=== PATIENT | male | born 1955 | race Caucasian/White ===

== ENCOUNTER 2021-06-25 17:45 | Inpatient (IN) | payer MEDICAID ==
[~2021-06-25] VITALS: Ht 182.9 cm; Wt 107.2 kg
[2021-06-25 18:35] LABS: BASO # 0.1 K/mm3 (0.0-0.2); BASO % 0.9 % (0.0-2.0); EOS # 0.2 K/mm3 (0.0-0.7); EOS % 2.2 % (0-4.0); GRAN # 6.6 K/mm3 (1.4-6.5); GRAN % 77.3 % (42.2-75.2); HEMATOCRIT 43.8 % (42.0-52.0); HEMOGLOBIN 14.6 g/dl (13.5-18.0); LYMPH # 0.9 K/mm3 (1.2-3.4); LYMPH % 10.6 % (20.0-51.0); MEAN CELL VOLUME 93 fl (80.0-100.0); MEAN CORPUSCULAR HEMOGLOBIN 31 pg (27.0-31.0); MEAN CORPUSCULAR HGB CONC 33 g/dl (33.0-37.0); MONO # 0.7 K/mm3 (0.1-0.6); MONO % 8.6 % (1.7-9.3); PLATELET COUNT 255 K/mm3 (130-400); REDCELL DISTRIBUTION WIDTH-CV 13.2 % (11.5-14.5)
[2021-06-25 18:39] LABS: INR 1.3 (0.8-3.0); PROTHROMBIN TIME 14.3 SECONDS (9.7-12.8)
[2021-06-25 18:41] LABS: BILIRUBIN,TOTAL 2.1 mg/dL (0.2-1.2); CALCIUM 9.2 mg/dL (8.4-10.2); CREATININE, serum 1.27 mg/dL (0.72-1.25); POTASSIUM 3.8 mmol/L (3.5-4.5); TOTAL PROTEIN 7.7 gm/dL (6.2-8.1)
[2021-06-25 18:42] LABS: PARTIAL THROMBOPLASTIN TIME 33.3 SECONDS (26.0-37.0)
[2021-06-25 18:47] LABS: TROPONIN-I 0.04 ng/mL (0.00-0.033)
[2021-06-25 22:54] LABS: C-REACTIVE PROTEIN 1.21 mg/dL (0.00-0.50); MAGNESIUM 2.1 mg/dL (1.6-2.6); PHOSPHOROUS 3.8 mg/dL (2.3-4.7)
[2021-06-25 23:15] LABS: THYROID STIMULATING HORMONE 1.25 uIU/mL (0.350-4.940)
[2021-06-26] VITALS (651 sets, daily range): BP systolic 107–190; BP diastolic 11–112; PULSE 59–85; TEMP 98–98.8; O2SAT 84–99
[2021-06-26 01:21] LABS: CALCIUM 9.2 mg/dL (8.4-10.2); CREATININE, serum 1.12 mg/dL (0.72-1.25); POTASSIUM 3.6 mmol/L (3.5-4.5)
[2021-06-26 05:16] LABS: BASO # 0.1 K/mm3 (0.0-0.2); BASO % 0.9 % (0.0-2.0); EOS # 0.3 K/mm3 (0.0-0.7); GRAN # 6.7 K/mm3 (1.4-6.5); GRAN % 77.7 % (42.2-75.2); HEMATOCRIT 41.4 % (42.0-52.0); HEMOGLOBIN 13.5 g/dl (13.5-18.0); LYMPH # 0.8 K/mm3 (1.2-3.4); LYMPH % 9.3 % (20.0-51.0); MEAN CELL VOLUME 95 fl (80.0-100.0); MEAN CORPUSCULAR HEMOGLOBIN 31 pg (27.0-31.0); MEAN CORPUSCULAR HGB CONC 33 g/dl (33.0-37.0); MEAN PLATELET VOLUME 10.6 fl (7.4-10.4); MONO # 0.8 K/mm3 (0.1-0.6); MONO % 8.9 % (1.7-9.3); PLATELET COUNT 242 K/mm3 (130-400); RED BLOOD COUNT 4.36 M/mm3 (4.20-5.60); REDCELL DISTRIBUTION WIDTH-CV 13.2 % (11.5-14.5)
[2021-06-26 05:32] LABS: CALCIUM 8.9 mg/dL (8.4-10.2); CHOLESTEROL RISK RATIO 7.6; CREATININE, serum 1.16 mg/dL (0.72-1.25); POTASSIUM 3.9 mmol/L (3.5-4.5)
--- NOTE | 2021-06-26 13:49 | NUR ---
SW met with patient to complete intake. Patient provides that he lives with is brother Daren, brother Jorge [phone] present at intake. Patient states that he does not utilize DME and is independent with ADL's. Patient provides that he does not have a PCP established, and has been utilizing [facility] for his pharmacy needs. Patient provides that is brother Jorge and sister Ghada has been appointed as his DPOA-HC. Brother provides that he can bring a copy of document. Patient provides that his plan is to return to his home up [place] and has no concerns with doing so. SW will continue to follow. DC Plan: Home
[2021-06-27] VITALS (131 sets, daily range): BP systolic 143–161; BP diastolic 82–98; PULSE 56–65; TEMP 97.8–98.6; O2SAT 74–98
--- NOTE | 2021-06-27 07:11 | NUR ---
PATIENT RESTING IN BED. HEPARIN DRIP INFUSING AT 15.5ML/HR
[2021-06-27 08:08] LABS: BASO # 0.1 K/mm3 (0.0-0.2); EOS # 0.3 K/mm3 (0.0-0.7); EOS % 3.6 % (0-4.0); GRAN # 5.8 K/mm3 (1.4-6.5); GRAN % 72.1 % (42.2-75.2); LYMPH # 0.9 K/mm3 (1.2-3.4); MEAN CELL VOLUME 93 fl (80.0-100.0); MEAN CORPUSCULAR HEMOGLOBIN 31 pg (27.0-31.0); MEAN CORPUSCULAR HGB CONC 33 g/dl (33.0-37.0); MEAN PLATELET VOLUME 10.8 fl (7.4-10.4); MONO % 12.1 % (1.7-9.3); PLATELET COUNT 259 K/mm3 (130-400); RED BLOOD COUNT 5.08 M/mm3 (4.20-5.60); REDCELL DISTRIBUTION WIDTH-CV 13.3 % (11.5-14.5)
[2021-06-27 08:09] LABS: HEMOGLOBIN 15.7 g/dl (13.5-18.0)
[2021-06-27 08:19] LABS: CALCIUM 9.5 mg/dL (8.4-10.2); CREATININE, serum 1.32 mg/dL (0.72-1.25); POTASSIUM 3.5 mmol/L (3.5-4.5)
--- NOTE | 2021-06-27 09:23 | NUR ---
PATIENT UP AT THE SIDE OF THE BED. HE DENIES OTHER NEEDS. VOIDING WELL HEPARIN DRIP INFUSING. ASSESSMENT COMPLETED. AND NO PAIN REPORTED
--- NOTE | 2021-06-27 13:18 | NUR ---
mining support worker met with the patient to discuss discharge plan. Patient states that he lives with his brother Daren, but that Daren does not have a phone and neither of them have a car. Patient reports that he ised to see Fabi Montano at the [address] [place] [address] but since that has closed he has not seen a physician. Reports he is fully independent with his activities of daily living and does not utilize any DME. Patient reports that he does not have a DPOA-HC established but verbalizes his agent would be his other brother Jorge ([phone]). Patient is not and has no children. Patient verbalizes that he would like a DPOA-HC form to take home and review with Jorge. Form provided and education given. Patient is planning on returning home once ready. PCP will need to be established. Dicharge plan: Home- Needs PCP
--- NOTE | 2021-06-27 19:35 | NUR ---
PT LAYING IN BED, CALL LIGHT IN REACH. NO COMPLAINTS AT THIS TIME.
--- NOTE | 2021-06-27 23:53 | NUR ---
PT SITTING UP IN BED WITH HEP GTT RUNNING SMOOTHLY AT 16 GTT. PT WATCHING FOOTBALL GAME. DENIES PAIN, SOB OR ANY COMPLAINTS. PT STATED "SUPPOSED TO HAVE CT SCAN TOMORROW PER DR. GIBSON AND POSSIBLE D/C TOMORROW." PT HAS CALL LIGHT IN REACH, NO NEEDS AT THIS TIME, ADVISED TO CALL FOR ANY INCREASE OF PAIN OR SOB.
[2021-06-28 01:39] VITALS: BP 145/78; PULSE 68; TEMP 98
[2021-06-28 04:42] VITALS: BP 153/74; PULSE 67; TEMP 97.9
--- NOTE | 2021-06-28 06:40 | NUR ---
PT STAYED UP TO FINISH WATCHING THE FOOTBALL GAMES. PT WAS PLEASANT ALL NIGHT WITH NO COMPLAINTS. PT INVOLVED WITH CARE AND ASKING QUESTIONS. PT SLEPT A DECENT AMOUNT. CALL LIGHT IN REACH. NO NEEDS AT THIS TIME.
[2021-06-28 06:53] LABS: BASO # 0.1 K/mm3 (0.0-0.2); EOS # 0.4 K/mm3 (0.0-0.7); EOS % 4.9 % (0-4.0); GRAN # 5.8 K/mm3 (1.4-6.5); GRAN % 71.4 % (42.2-75.2); HEMATOCRIT 43.8 % (42.0-52.0); HEMOGLOBIN 14.7 g/dl (13.5-18.0); LYMPH # 0.9 K/mm3 (1.2-3.4); LYMPH % 10.9 % (20.0-51.0); MEAN CELL VOLUME 94 fl (80.0-100.0); MEAN CORPUSCULAR HEMOGLOBIN 32 pg (27.0-31.0); MEAN CORPUSCULAR HGB CONC 34 g/dl (33.0-37.0); MEAN PLATELET VOLUME 11.1 fl (7.4-10.4); MONO # 0.9 K/mm3 (0.1-0.6); MONO % 11.3 % (1.7-9.3); PLATELET COUNT 264 K/mm3 (130-400); RED BLOOD COUNT 4.67 M/mm3 (4.20-5.60); REDCELL DISTRIBUTION WIDTH-CV 13.4 % (11.5-14.5)
[2021-06-28 07:02] LABS: CALCIUM 9.2 mg/dL (8.4-10.2); CREATININE, serum 1.32 mg/dL (0.72-1.25); POTASSIUM 3.8 mmol/L (3.5-4.5)
[2021-06-28 08:21] VITALS: BP 157/91; PULSE 66; TEMP 98.2
--- NOTE | 2021-06-28 08:45 | NUR ---
Pt assessment complete. Pt is sitting up in bed upon entry, he is A/O x4. His breathing is even and unlabored on RA. Pt denies SOB at rest has some SOB with exertion but overall this is much improved. Pt denies any abdominal pain N/V. Good UOP. Denies any chest pain today. Heparin drip infusing per protocol. No needs at this time. Call light within reach.
[2021-06-28 12:37] VITALS: BP 158/73; PULSE 58; TEMP 97.8
--- NOTE | 2021-06-28 12:54 | NUR ---
Initial visit; Patient thanked Consultant Rn for looking in on him, offering prayer and God's blessings and offering to stay in touch with him.
[2021-06-28 16:21] VITALS: BP 148/75; PULSE 60; TEMP 97.7
--- NOTE | 2021-06-28 18:48 | NUR ---
Pt had uneventful day, denied any pain or concerns. Heparin drip stopped per orders. POC discussed with patient, will be NPO at midnight. No needs at this time. Call light within reach.
--- NOTE | 2021-06-28 20:00 | NUR ---
Patient is lying in bed, alert and oriented x 4, VSS. Denies pain, nausea or vomiting. Tele pin place NSR. Instructed to be NPO overnight. Assessment completed, meds provided. No further needs at this time, call light within reach.
[2021-06-28 21:07] VITALS: BP 125/97; PULSE 54; TEMP 97.9
[2021-06-29] VITALS (10 sets, daily range): BP systolic 129–166; BP diastolic 64–92; PULSE 50–74; TEMP 97.7–98.7
--- NOTE | 2021-06-29 07:05 | NUR ---
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 All needs met. Shift report given to day shift RN.
[2021-06-29 07:18] LABS: BASO # 0.1 K/mm3 (0.0-0.2); BASO % 1.1 % (0.0-2.0); EOS # 0.5 K/mm3 (0.0-0.7); GRAN # 4.5 K/mm3 (1.4-6.5); GRAN % 63.5 % (42.2-75.2); HEMATOCRIT 42.7 % (42.0-52.0); HEMOGLOBIN 14.1 g/dl (13.5-18.0); LYMPH # 1.1 K/mm3 (1.2-3.4); MEAN CELL VOLUME 94 fl (80.0-100.0); MEAN CORPUSCULAR HEMOGLOBIN 31 pg (27.0-31.0); MEAN CORPUSCULAR HGB CONC 33 g/dl (33.0-37.0); MEAN PLATELET VOLUME 10.9 fl (7.4-10.4); MONO # 0.9 K/mm3 (0.1-0.6); MONO % 13.1 % (1.7-9.3); PLATELET COUNT 274 K/mm3 (130-400); RED BLOOD COUNT 4.54 M/mm3 (4.20-5.60); REDCELL DISTRIBUTION WIDTH-CV 13.3 % (11.5-14.5)
[2021-06-29 07:44] LABS: CALCIUM 8.6 mg/dL (8.4-10.2); CREATININE, serum 1.23 mg/dL (0.72-1.25); MAGNESIUM 2.2 mg/dL (1.6-2.6); POTASSIUM 3.8 mmol/L (3.5-4.5)
[2021-06-29] MEDS ORDERED: LOPRESSOR 225 MG/TAB PO ×2 (15:13)
[2021-06-29] MEDS ORDERED: LIPITOR 40MG TA40 MG PO (15:13)
[2021-06-29] MEDS ORDERED: ASPIRIN E.C. 8181 MG PO (15:14)
[2021-06-29] MEDS ORDERED: COZAAR 25MG25 MG/TAB PO (15:14)
[2021-06-29] MEDS ORDERED: LASIX 40MG TABL40 MG PO (15:16)
[2021-06-29] MEDS ORDERED: NITROSTAT0.4 MG/TAB SL ×2 (15:18→16:28)
[2021-06-29] MEDS ORDERED: TOPROL XL 50MG50 MG PO (15:45)
--- NOTE | 2021-06-29 16:21 | NUR ---
The patient is to discharge back home today, 06/29. He is in need of primary care. MURPHY met with the patient to review clinic options. The patient would prefer [facility] since he lives on [address] [place] [address]. MURPHY contacted Loraine at [facility]. Loraine reports that they only take patient's without insurance. The ammunition assembly laborer secured the patient an appointment with Dr. Avelar at [facility] on 07/06 at 1015. MURPHY updated the patient. The patient is agreeable to this. The patient reports that his brother will be transporting him home today. No additional needs at this time.
== END 2021-06-29 18:15 | disposition home or self-care (01) | DRG 280 ==
LOC: COL.ER 17:45 → MEDICAL 22:20 → ICU 22:20 → MEDICAL 06-27 04:30
PROVIDERS: Family Medicine; Nurse Practitioner Family; Physician Assistant
DX: I13.0 Hypertensive heart and chronic kidney disease with heart failure and stage 1 through stage 4 chronic kidney disease, or unspecified chronic kidney disease (principal); I50.23 Acute on chronic systolic (congestive) heart failure; I21.4 Non-ST elevation (NSTEMI) myocardial infarction; N17.9 Acute kidney failure, unspecified; I16.1 Hypertensive emergency; N18.9 Chronic kidney disease, unspecified; E78.5 Hyperlipidemia, unspecified; I25.10 Atherosclerotic heart disease of native coronary artery without angina pectoris; F17.210 Nicotine dependence, cigarettes, uncomplicated; T50.2X6A Underdosing of carbonic-anhydrase inhibitors, benzothiadiazides and other diuretics, initial encounter; Z91.138 Patient's unintentional underdosing of medication regimen for other reason; Z95.1 Presence of aortocoronary bypass graft; Z20.822 Contact with and (suspected) exposure to COVID-19
CPT/HCPCS: 99223-AI; 99232-AI; 99233-AI; 99239; A9500; C9113; J1644; J1940; J2785

== ENCOUNTER 2021-11-25 13:20 | Observation (INO) | payer MEDICAID ==
[~2021-11-25] VITALS: Ht 182.9 cm; Wt 105.0 kg
[~2021-11-25 13:20] MED LIST: ASPIRIN E.C. 8181 MG PO; COZAAR 25MG25 MG/TAB PO; LASIX 40MG TABL40 MG PO; LIPITOR 40MG TA40 MG PO; LOPRESSOR 225 MG/TAB PO; NITROSTAT0.4 MG/TAB SL; TOPROL XL 50MG50 MG PO
[2021-11-25 14:38] LABS: BASO # 0.1 K/mm3 (0.0-0.2); EOS # 0.1 K/mm3 (0.0-0.7); EOS % 2.3 % (0.0-4.0); GRAN # 4.6 K/mm3 (1.4-6.5); GRAN % 74.9 % (42.2-75.2); HEMOGLOBIN 13.8 g/dl (13.5-18.0); LYMPH # 0.8 K/mm3 (1.2-3.4); MEAN CELL VOLUME 95 fl (80.0-100.0); MEAN CORPUSCULAR HEMOGLOBIN 30 pg (27-31); MEAN CORPUSCULAR HGB CONC 32 g/dl (33.0-37.0); MEAN PLATELET VOLUME 10.7 fl (7.4-10.4); MONO # 0.5 K/mm3 (0.1-0.6); MONO % 8.6 % (1.7-9.3); PLATELET COUNT 226 K/mm3 (130-400); RED BLOOD COUNT 4.55 M/mm3 (4.20-5.60); REDCELL DISTRIBUTION WIDTH-CV 14.7 % (11.5-14.5)
[2021-11-25 14:56] LABS: ALBUMIN 3.5 gm/dL (3.4-4.8); BILIRUBIN,TOTAL 2.1 mg/dL (0.2-1.2); CALCIUM 8.3 mg/dL (8.4-10.2); CREATININE, serum 1.11 mg/dL (0.72-1.25); POTASSIUM 3.8 mmol/L (3.5-4.5); TOTAL PROTEIN 6.9 gm/dL (6.2-8.1)
[2021-11-25 15:02] LABS: TROPONIN-I 0.022 ng/mL (0.00-0.033)
[2021-11-25 15:13] LABS: INR 1.4 (0.8-3.0); PROTHROMBIN TIME 15.1 SECONDS (9.7-12.8)
[2021-11-25 15:16] LABS: PARTIAL THROMBOPLASTIN TIME 34.2 SECONDS (26.0-37.0)
[2021-11-25 16:06] LABS: D-DIMER < 200.00 ng/mLDDu (200-230)
[2021-11-25 16:44] LABS: COLLECTION METHOD CLEAN CATCH
[2021-11-25 16:53] LABS: MUCOUS Present (NOT PRESENT); PH 5 (5-8); SQUAMOUS EPITHELIAL None Seen /hpf (0-10); URINE APPEARANCE Clear (CLEAR/HAZY); URINE BACTERIA None Seen /hpf (NONE SEEN); URINE BILIRUBIN Negative (NEGATIVE); URINE BLOOD 1+ (NEGATIVE); URINE COLOR Yellow (YELLOW); URINE GLUCOSE Negative (NEGATIVE); URINE KETONE Negative (NEGATIVE); URINE LEUKOCYTE ESTERASE Negative (NEGATIVE); URINE NITRATE Negative (NEGATIVE); URINE PROTEIN(semi-quant) 1+ (NEGATIVE); URINE RBC 0-2 /hpf (0-2); URINE UROBILINOGEN Negative (NEGATIVE)
[2021-11-25 17:00] LABS: TRICYCLIC ANTIDEPRESS URINE NEGATIVE
[2021-11-25 21:22] LABS: C-REACTIVE PROTEIN 0.94 mg/dL (0.00-0.50); MAGNESIUM 2.1 mg/dL (1.6-2.6); PHOSPHOROUS 4.1 mg/dL (2.3-4.7)
[2021-11-25 21:42] LABS: THYROID STIMULATING HORMONE 1.027 uIU/mL (0.350-4.940)
--- NOTE | 2021-11-25 21:45 | NUR ---
RECEIVED REPORT FROM Mitul RNMANOHAR. PATIENT ARRIVED TO ROOM VIA W/C WITH PCT PRESENT TO TRANSPORT PATIENT FROM [facility].
[2021-11-25 21:46] VITALS: BP 147/94; PULSE 60; TEMP 97.9
[2021-11-26] VITALS (8 sets, daily range): BP systolic 121–162; BP diastolic 67–102; PULSE 51–62; TEMP 97.6–98.2
[2021-11-26 05:53] LABS: BASO # 0.1 K/mm3 (0.0-0.2); BASO % 1.5 % (0.0-2.0); EOS # 0.1 K/mm3 (0.0-0.7); EOS % 2.7 % (0.0-4.0); GRAN # 3.5 K/mm3 (1.4-6.5); HEMATOCRIT 45.7 % (42.0-52.0); HEMOGLOBIN 14.6 g/dl (13.5-18.0); LYMPH # 0.6 K/mm3 (1.2-3.4); LYMPH % 13.3 % (20.0-51.0); MEAN CELL VOLUME 95 fl (80.0-100.0); MEAN CORPUSCULAR HEMOGLOBIN 30 pg (27-31); MEAN CORPUSCULAR HGB CONC 32 g/dl (33.0-37.0); MONO # 0.4 K/mm3 (0.1-0.6); MONO % 9.3 % (1.7-9.3); PLATELET COUNT 238 K/mm3 (130-400); REDCELL DISTRIBUTION WIDTH-CV 14.9 % (11.5-14.5)
[2021-11-26 06:00] LABS: CALCIUM 8.7 mg/dL (8.4-10.2); CHOLESTEROL RISK RATIO 6.8; CREATININE, serum 1.44 mg/dL (0.72-1.25); POTASSIUM 4.3 mmol/L (3.5-4.5)
--- NOTE | 2021-11-26 06:53 | NUR ---
CHANGE OF SHIFT REPORT GIVEN TO DAY SHIFT RNs, BALJEET.
--- NOTE | 2021-11-26 09:35 | NUR ---
Rate Clerk met with patient to discuss discharge planning. Patient lives in [place] with his brother, Daren and advised he does not have a current primary care physician due to transportation barriers. SW provided education on Medicaid transportation benefits and provided patient with contact number for scheduling. Patient expressed relief as he was worried about making it to his follow up appointments. Patient states he obtains his medications from [facility] with no difficulties as he lives only a couple blocks from [facility] and can walk there. Patient does not use any DME and is independent with ADLS. Patient reports he believes he has designated his brother, Jorge (ph#[phone]) as DPOA-HC. Patient states he is not and has no children. Patient plans to return home at time of discharge. Discharge Plan: Home
--- NOTE | 2021-11-26 10:38 | NUR ---
Pt assessment complete. Pt has a student nurse caring for him this am. pt is A/O x4. His breathing is even and unlabored on RA. Pt denies SOB. No chest pain or palpitations. Reports mild abdominal discomfort. No N/V. POC discussed with patient who verbalizes understanding. No needs at this time. Call light within reach.
--- NOTE | 2021-11-26 20:30 | NUR ---
Pt. sitting up in bed watching TV at this time. Pt. is A&OX3, assessment complete. INT to rt. hand patent. Pt. denies pain or other needs, call light within reach.
[2021-11-27 03:10] VITALS: BP 128/84; PULSE 57; TEMP 97.5
[2021-11-27 07:04] LABS: BASO # 0.1 K/mm3 (0.0-0.2); BASO % 1.6 % (0.0-2.0); EOS # 0.2 K/mm3 (0.0-0.7); EOS % 3.2 % (0.0-4.0); GRAN # 3.9 K/mm3 (1.4-6.5); HEMATOCRIT 43.4 % (42.0-52.0); HEMOGLOBIN 13.8 g/dl (13.5-18.0); LYMPH # 0.9 K/mm3 (1.2-3.4); LYMPH % 15.1 % (20.0-51.0); MEAN CELL VOLUME 95 fl (80.0-100.0); MEAN CORPUSCULAR HEMOGLOBIN 30 pg (27-31); MEAN CORPUSCULAR HGB CONC 32 g/dl (33.0-37.0); MEAN PLATELET VOLUME 11.2 fl (7.4-10.4); MONO # 0.6 K/mm3 (0.1-0.6); MONO % 10.9 % (1.7-9.3); PLATELET COUNT 234 K/mm3 (130-400); RED BLOOD COUNT 4.58 M/mm3 (4.20-5.60); REDCELL DISTRIBUTION WIDTH-CV 14.8 % (11.5-14.5)
[2021-11-27 07:18] LABS: CALCIUM 8.4 mg/dL (8.4-10.2); CREATININE, serum 1.47 mg/dL (0.72-1.25); POTASSIUM 4.4 mmol/L (3.5-4.5)
[2021-11-27 08:00] VITALS: BP 151/97; TEMP 98.2
[2021-11-27 11:42] VITALS: BP 113/91; PULSE 57; TEMP 98.4
[2021-11-27 15:58] VITALS: BP 151/92; PULSE 64; TEMP 98.1
[2021-11-27 20:04] VITALS: BP 131/71; PULSE 51; TEMP 98.5
--- NOTE | 2021-11-27 20:30 | NUR ---
PT INDEPENDENT IN ROOM, DENIES SHORTNESS OF BREATH. INT TO RT HAND, FLUSHES WELL. PT HAS MILD EDEMA TO LOWER LEGS. HOPING TO GO HOME TOMORROW.
[2021-11-27 23:53] VITALS: BP 125/81; PULSE 48; TEMP 97.9
--- NOTE | 2021-11-28 00:20 | NUR ---
UA OBTAINED AND SENT TO LAB. PT DENIES NEEDS AT THIS TIME.
[2021-11-28 04:28] VITALS: BP 125/73; PULSE 62; TEMP 97.8
--- NOTE | 2021-11-28 06:00 | NUR ---
SCHEDULED AM MED GIVEN. PT DENIES NEEDS AT THIS TIME.
[2021-11-28 07:43] LABS: BASO # 0.1 K/mm3 (0.0-0.2); BASO % 1.5 % (0.0-2.0); EOS # 0.2 K/mm3 (0.0-0.7); EOS % 3.7 % (0.0-4.0); GRAN # 4.1 K/mm3 (1.4-6.5); GRAN % 68.8 % (42.2-75.2); HEMATOCRIT 42.8 % (42.0-52.0); HEMOGLOBIN 13.7 g/dl (13.5-18.0); LYMPH # 0.9 K/mm3 (1.2-3.4); LYMPH % 14.8 % (20.0-51.0); MEAN CELL VOLUME 95 fl (80.0-100.0); MEAN CORPUSCULAR HEMOGLOBIN 30 pg (27-31); MEAN CORPUSCULAR HGB CONC 32 g/dl (33.0-37.0); MEAN PLATELET VOLUME 10.8 fl (7.4-10.4); MONO # 0.7 K/mm3 (0.1-0.6); MONO % 10.9 % (1.7-9.3); PLATELET COUNT 212 K/mm3 (130-400); RED BLOOD COUNT 4.53 M/mm3 (4.20-5.60); REDCELL DISTRIBUTION WIDTH-CV 14.6 % (11.5-14.5)
[2021-11-28 08:00] VITALS: BP 134/71; PULSE 59; TEMP 97.9
[2021-11-28 08:00] LABS: CALCIUM 8.4 mg/dL (8.4-10.2); CREATININE, serum 1.36 mg/dL (0.72-1.25); POTASSIUM 4.4 mmol/L (3.5-4.5)
--- NOTE | 2021-11-28 09:37 | NUR ---
Pt assessment complete. Pt asking about discharging home today, states he wants to make sure "everything is okay" before he goes home. POC discussed with patient. Having no pain today. No N/V, SOB per patient. Discussed fluid restrictions continuing when at home as well. No further needs. Call light within reach.
--- NOTE | 2021-11-28 11:50 | NUR ---
MURPHY met with patient due to being information that patient would be discharging home on this day. Patient states that he has all the information that he needs that includes written documentation on transporation that insurance will cover to get him to and from appointments ([facility]). Patient states that he will be calling his brother Jorge today to pick him up when it is time to discharge. Patient alsp provided that his brother is able to take him to apointments every now and then, but will always use [facility] now that he has the resourceful information. Nothing further.
[2021-11-28 12:00] VITALS: BP 150/99; PULSE 65; TEMP 98.2
[2021-11-28] MEDS ORDERED: PROTONIX 40MG T40 MG PO (12:52)
[2021-11-28] MEDS ORDERED: NORVASC 10MG10 MG PO (12:52)
[2021-11-28] MEDS ORDERED: LASIX 40MG TABL40 MG PO (12:58)
--- NOTE | 2021-11-28 16:30 | NUR ---
Discharge paperwork and instructions reviewed with patient. All questions answered at this time. IV to R hand dc'd catheter tip intact. Pt walked out by staff member at this time.
== END 2021-11-28 16:30 | disposition home or self-care (01) ==
LOC: COL.ER 13:20 → SURG 20:05
PROVIDERS: Nurse Practitioner Family; Physician Assistant; ADMIT Internal Medicine
DX: I16.0 Hypertensive urgency (principal); I11.0 Hypertensive heart disease with heart failure; I50.21 Acute systolic (congestive) heart failure; R07.9 Chest pain, unspecified; N17.9 Acute kidney failure, unspecified; F17.210 Nicotine dependence, cigarettes, uncomplicated; I25.2 Old myocardial infarction; R63.4 Abnormal weight loss; I05.0 Rheumatic mitral stenosis; E78.5 Hyperlipidemia, unspecified; E80.7 Disorder of bilirubin metabolism, unspecified; E87.2 Acidosis; R10.13 Epigastric pain; Z91.128 Patient's intentional underdosing of medication regimen for other reason; Z91.19 Patient's noncompliance with other medical treatment and regimen; Z95.1 Presence of aortocoronary bypass graft; Z79.899 Other long term (current) drug therapy
CPT/HCPCS: 99222-AI; 99233-AI; 99239; C9113; G0378; J1650; J1940; J2405; Q9967

== ENCOUNTER 2022-04-08 14:39 | Inpatient (IN) | payer MEDICARE, MEDICAID ==
[~2022-04-08] VITALS: Ht 182.9 cm; Wt 113.6 kg
[~2022-04-08 14:39] MED LIST changes: +NORVASC 10MG10 MG PO; +PROTONIX 40MG T40 MG PO
[2022-04-08 15:07] LABS: BASO # 0.1 K/mm3 (0.0-0.2); BASO % 1.6 % (0.0-2.0); EOS # 0.2 K/mm3 (0.0-0.7); GRAN # 5.7 K/mm3 (1.4-6.5); GRAN % 72.1 % (42.2-75.2); HEMOGLOBIN 13.9 g/dl (13.5-18.0); LYMPH # 1.2 K/mm3 (1.2-3.4); LYMPH % 15.3 % (20.0-51.0); MEAN CELL VOLUME 92 fl (80.0-100.0); MEAN CORPUSCULAR HEMOGLOBIN 28 pg (27-31); MEAN CORPUSCULAR HGB CONC 31 g/dl (33.0-37.0); MEAN PLATELET VOLUME 10.8 fl (7.4-10.4); MONO # 0.7 K/mm3 (0.1-0.6); MONO % 8.6 % (1.7-9.3); PLATELET COUNT 371 K/mm3 (130-400); REDCELL DISTRIBUTION WIDTH-CV 14.6 % (11.5-14.5)
[2022-04-08 15:14] LABS: INR 1.4 (0.8-3.0); PROTHROMBIN TIME 15.9 SECONDS (9.7-12.8)
[2022-04-08 15:30] LABS: ALBUMIN 3.8 gm/dL (3.4-4.8); BILIRUBIN,TOTAL 2.6 mg/dL (0.2-1.2); CALCIUM 8.9 mg/dL (8.4-10.2); CREATININE, serum 1.41 mg/dL (0.72-1.25); POTASSIUM 4.1 mmol/L (3.5-4.5); TOTAL PROTEIN 7.8 gm/dL (6.2-8.1)
[2022-04-08 15:40] LABS: TROPONIN-I 0.038 ng/mL (0.00-0.033)
[2022-04-08 20:00] VITALS: BP 154/96; PULSE 64; TEMP 97.7
[2022-04-08 22:52] VITALS: BP 154/96; PULSE 64; TEMP 97.7
[2022-04-09 00:28] VITALS: BP 160/94; PULSE 74; TEMP 97.9
--- NOTE | 2022-04-09 01:40 | NUR ---
UPON ADMISSION PT STATES HE DOES NOT TAKE ANY HOME MEDICATIONS. IN ATTEMPT TO COMPLETE MED RECONCILIATION I INQUIRED FURTHER TO WHAT MEDS HE SHOULD BE ON AND HE STATED "I DON'T TAKE ANYTHING AND HAVEN'T BEEN".
[2022-04-09 04:36] VITALS: BP 172/87; PULSE 70; TEMP 97.7
[2022-04-09 06:03] LABS: BASO # 0.1 K/mm3 (0.0-0.2); BASO % 1.6 % (0.0-2.0); EOS # 0.2 K/mm3 (0.0-0.7); EOS % 2.4 % (0.0-4.0); GRAN # 4.9 K/mm3 (1.4-6.5); GRAN % 73.5 % (42.2-75.2); HEMATOCRIT 39.1 % (42.0-52.0); HEMOGLOBIN 12.5 g/dl (13.5-18.0); LYMPH # 0.9 K/mm3 (1.2-3.4); MEAN CELL VOLUME 91 fl (80.0-100.0); MEAN CORPUSCULAR HEMOGLOBIN 29 pg (27-31); MEAN CORPUSCULAR HGB CONC 32 g/dl (33.0-37.0); MONO # 0.6 K/mm3 (0.1-0.6); MONO % 9.1 % (1.7-9.3); RED BLOOD COUNT 4.32 M/mm3 (4.20-5.60); REDCELL DISTRIBUTION WIDTH-CV 14.4 % (11.5-14.5)
[2022-04-09 06:25] LABS: CALCIUM 8.5 mg/dL (8.4-10.2); CREATININE, serum 1.1 mg/dL (0.72-1.25); POTASSIUM 3.9 mmol/L (3.5-4.5)
[2022-04-09 06:31] LABS: PLATELET COUNT 248 K/mm3 (130-400)
[2022-04-09 07:32] VITALS: BP 165/84; PULSE 74; TEMP 97.8
--- NOTE | 2022-04-09 08:40 | NUR ---
Pt doing well this morning. He has some complaints of pain in his lower legs, reports that he always has it. Pt does have leasions on his legs, pt reports from swelling. They are scattered scabs throughout his calves with a few on his thighs. None are open at this time. Pt also has a large golfball size skin tag appearing on his left thigh. Appears dark red with pea size scab on it. Pt is using urinal for voiding and output measuring. Pt aware to notify nursing if he needs/wants to get up.
[2022-04-09 11:26] VITALS: BP 141/67; PULSE 66; TEMP 97.9
--- NOTE | 2022-04-09 13:28 | NUR ---
Chaplain sylvester and offered support with patient.
--- NOTE | 2022-04-09 15:00 | NUR ---
Pt continues to do well. Aware to limit fluid intake. Pt continues to use urinal for voiding. Updated on new medications ordered. Called Dr Barroso regarding VTE
[2022-04-09 16:34] VITALS: BP 129/77; PULSE 69; TEMP 97.7
[2022-04-09 19:55] VITALS: BP 134/83; PULSE 60; TEMP 98
--- NOTE | 2022-04-09 23:02 | NUR ---
PT REFUSING BED ALARM AT THIS TIME
[2022-04-10] VITALS (8 sets, daily range): BP systolic 117–151; BP diastolic 61–102; PULSE 58–78; TEMP 97.7–98.8
[2022-04-10 07:54] LABS: BASO # 0.1 K/mm3 (0.0-0.2); BASO % 1.1 % (0.0-2.0); EOS # 0.2 K/mm3 (0.0-0.7); EOS % 2.6 % (0.0-4.0); GRAN # 4.6 K/mm3 (1.4-6.5); GRAN % 72.1 % (42.2-75.2); HEMATOCRIT 40.3 % (42.0-52.0); HEMOGLOBIN 12.5 g/dl (13.5-18.0); LYMPH # 0.8 K/mm3 (1.2-3.4); LYMPH % 12.3 % (20.0-51.0); MEAN CELL VOLUME 92 fl (80.0-100.0); MEAN CORPUSCULAR HEMOGLOBIN 29 pg (27-31); MEAN CORPUSCULAR HGB CONC 31 g/dl (33.0-37.0); MEAN PLATELET VOLUME 11.1 fl (7.4-10.4); MONO # 0.8 K/mm3 (0.1-0.6); MONO % 11.7 % (1.7-9.3); PLATELET COUNT 277 K/mm3 (130-400); RED BLOOD COUNT 4.36 M/mm3 (4.20-5.60); REDCELL DISTRIBUTION WIDTH-CV 14.5 % (11.5-14.5)
[2022-04-10 08:50] LABS: CALCIUM 8.4 mg/dL (8.4-10.2); CREATININE, serum 1.18 mg/dL (0.72-1.25); MAGNESIUM 2.2 mg/dL (1.6-2.6); POTASSIUM 4.1 mmol/L (3.5-4.5)
--- NOTE | 2022-04-10 08:59 | NUR ---
Pt much more steady on his feet today and is steady up walking around in his room. Educated that if he wants to go for a walk outside of his room, he needs to notify nursing. Pt verbalized understanding. Pt reports that the pain in his legs is better, not feeling as tight. Does appear that the edema has gone down some. Pt has ordered breakfast, morning medications given, no other needs, call light within reach
--- NOTE | 2022-04-10 13:07 | NUR ---
SW met with patient to complete intake. Patient states that he lives in [facility]. Point of contact is his brother Jorge Harrison [phone]. Patient provided that he is here due to not being able to get to his follow up appointment with the primary care doctor that was provided for him. Patient states that he does not have a PCP, but does have the information from the one he was appointed to prior to dc four months ago. Patient stated he was also provided information to get transportation to the appointment, but did not follow. SW encouraged patient to make sure to follow up on resources provided in order to get the assistance he needed. Patient verbally agreed that he would do so in order to prevent a return to the hospital. Patienet states he does not utilize DME, is independent with ADLs, pharmacy is [facility]. Patient plans to return to his home upon DC. SW will continue to follow. DC plan: home
[2022-04-11 04:58] VITALS: BP 147/87; PULSE 67; TEMP 98.7
--- NOTE | 2022-04-11 06:12 | NUR ---
Pt had uneventful night. Slept very well. Denies pain, no SOB, states he feels much better than when he arrived. Plan for heart cath and RUDDY today. Heparin gttp has remained at 16.5ml/hr as his HepXA has been goal x3. No other concerns, will report to Day shift RN.
[2022-04-11 06:23] LABS: BASO # 0.1 K/mm3 (0.0-0.2); BASO % 1.6 % (0.0-2.0); EOS # 0.2 K/mm3 (0.0-0.7); GRAN # 3.8 K/mm3 (1.4-6.5); HEMATOCRIT 41.4 % (42.0-52.0); HEMOGLOBIN 12.8 g/dl (13.5-18.0); LYMPH # 0.9 K/mm3 (1.2-3.4); LYMPH % 15.6 % (20.0-51.0); MEAN CELL VOLUME 91 fl (80.0-100.0); MEAN CORPUSCULAR HEMOGLOBIN 28 pg (27-31); MEAN CORPUSCULAR HGB CONC 31 g/dl (33.0-37.0); MEAN PLATELET VOLUME 10.4 fl (7.4-10.4); MONO # 0.7 K/mm3 (0.1-0.6); MONO % 12.6 % (1.7-9.3); PLATELET COUNT 277 K/mm3 (130-400); RED BLOOD COUNT 4.53 M/mm3 (4.20-5.60); REDCELL DISTRIBUTION WIDTH-CV 14.3 % (11.5-14.5)
[2022-04-11 06:40] LABS: CALCIUM 8.5 mg/dL (8.4-10.2); CREATININE, serum 1.37 mg/dL (0.72-1.25); POTASSIUM 3.9 mmol/L (3.5-4.5)
[2022-04-11 08:00] VITALS: BP 162/93; PULSE 73; TEMP 98.3
[2022-04-11 12:00] VITALS: BP 131/70; PULSE 61; TEMP 97.9
[2022-04-11 16:00] VITALS: BP 140/76; PULSE 56; TEMP 98.4
[2022-04-11] MEDS ORDERED: LIPITOR 80MG80 MG PO (16:24)
[2022-04-11] MEDS ORDERED: TOPROL XL100 MG PO (16:24)
[2022-04-11] MEDS ORDERED: MONODOX100 PO (16:25)
[2022-04-11] MEDS ORDERED: ASPIRIN E.C. 8181 MG PO (16:25)
[2022-04-11] MEDS ORDERED: COZAAR 25MG25 MG/TAB PO (16:25)
[2022-04-11] MEDS ORDERED: LASIX 40MG TABL40 MG PO (16:37)
--- NOTE | 2022-04-11 19:41 | NUR ---
PT ESCORTED OUT TO [facility] FOR DISCHARGE.
== END 2022-04-11 19:42 | disposition home or self-care (01) | DRG 280 ==
LOC: COL.ER 14:39 → ICU 16:50 → SURG 16:50
PROVIDERS: Emergency Medicine; ADMIT Student in an Organized Health Care Education/Training Program
DX: I11.0 Hypertensive heart disease with heart failure (principal); I50.23 Acute on chronic systolic (congestive) heart failure; I21.4 Non-ST elevation (NSTEMI) myocardial infarction; L03.116 Cellulitis of left lower limb; J91.8 Pleural effusion in other conditions classified elsewhere; N17.9 Acute kidney failure, unspecified; L03.115 Cellulitis of right lower limb; E78.5 Hyperlipidemia, unspecified; I25.10 Atherosclerotic heart disease of native coronary artery without angina pectoris; F17.210 Nicotine dependence, cigarettes, uncomplicated; I65.21 Occlusion and stenosis of right carotid artery; I34.0 Nonrheumatic mitral (valve) insufficiency; I16.0 Hypertensive urgency; I25.2 Old myocardial infarction; Z95.1 Presence of aortocoronary bypass graft; Z72.89 Other problems related to lifestyle; Z79.82 Long term (current) use of aspirin; Z91.14 Patient's other noncompliance with medication regimen
CPT/HCPCS: J0360; J0696; J1644; J1940